=== PATIENT | female | born 1950 | race Hispanic/Latino ===

== ENCOUNTER 2016-12-18 08:15 | Outpatient (CLI) | payer MEDICARE ==
[2016-12-18 08:50] LABS: BUN/Creatinine Ratio 32.35; Calcium 9.1 mg/dL (8.4-10.2); Chloride 96.3 mmol/L (98-107); Potassium 4.4 mmol/L (3.6-5.0)
[2016-12-18 09:39] LABS: Bilirubin,Urine NEG (Negative); Blood,Urine NEG (Negative); Ketones,Urine NEG (Negative); Leukocyte Esterase,Urine NEG (Negative); Mucus,Urine FEW /HPF; Nitrite,Urine NEG (Negative); Urobilinogen,Urine < 2.0 mg/dL (<2.0); WBC,Urine < 1.0 /HPF (0.0-6.0)
== END 2016-12-18 08:16 | disposition home or self-care (01) ==
LOC: LAB 08:15
PROVIDERS: ATTEND Internal Medicine Nephrology
DX: N18.4 Chronic kidney disease, stage 4 (severe) (principal)
CPT/HCPCS: 36415; 80048; 81001